=== PATIENT | female | born 1960 | race African-American/Black ===

== ENCOUNTER → 2017-12-22 | Outpatient (CLI) | payer OTHER ==
[~2017-12-22] MED LIST: ALBU90OI INH; LORPSEER12 PO; QVAR7.3 G1 IH
[2017-12-23 14:17] LABS: Source UN
== END ==
LOC: LAB 13:56
PROVIDERS: Nurse Practitioner Family
DX: Z01.419 Encounter for gynecological examination (general) (routine) without abnormal findings (principal)
CPT/HCPCS: G0145

== ENCOUNTER → 2023-09-02 | Outpatient (CLI) | payer OTHER ==
[2023-09-05 14:09] LABS: HPV 16 Negative (Negative); HPV 18 Negative (Negative); HPV OTHER HR TYPES Negative (Negative)
== END | disposition home or self-care (01) ==
LOC: LAB SHORT 14:36 → LAB 14:36
PROVIDERS: Advanced Practice Midwife
DX: Z01.419 Encounter for gynecological examination (general) (routine) without abnormal findings (principal)
CPT/HCPCS: 87624; G0145

== ENCOUNTER 2025-09-16 09:26 | Day surgery (SDC) | payer OTHER ==
[~2025-09-16] VITALS: Ht 157.5 cm; Wt 84.7 kg
[2025-09-16] MEDS ORDERED: Crestor40 MG (09:56)
[2025-09-16] MEDS ORDERED: IBUP400 (09:58)
[2025-09-16] MEDS ORDERED: ZYRTEC10 M4 (09:59)
[2025-09-16 11:21] VITALS: BP 128/66
== END 2025-09-16 11:23 | disposition home or self-care (01) ==
LOC: ORSCSDS 09:26 → ORD 10:30 → ORSCSDS 11:00 → ORD 12:30
PROVIDERS: Family Medicine
PROC: 0DJD8ZZ Inspection of Lower Intestinal Tract, Via Natural or Artificial Opening Endoscopic (ICD-10-PCS; principal; 2025-09-16 11:00)
DX: Z12.11 Encounter for screening for malignant neoplasm of colon (principal); K64.0 First degree hemorrhoids
CPT/HCPCS: J2704; J7120